=== PATIENT | female | born 2000 | race Caucasian/White ===

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

== ENCOUNTER 2019-06-09 19:40 | Emergency (ER) | payer MEDICAID, OTHER ==
[~2019-06-09] VITALS: Ht 162.6 cm; Wt 52.2 kg
[2019-06-09 19:40] VITALS: BP_SYST 140
--- NOTE | 2019-06-09 19:40 | NUR ---
Patient triaged and placed in waiting room. VSS and patient appears in no acute distress at this time. Accompanied by fam member, awaiting available bed, and MD notified of need for MSE.
--- NOTE | 2019-06-09 21:30 | NUR ---
call pt name in the wr.No answer.
--- NOTE | 2019-06-09 21:35 | NUR ---
call pt name in the wr.No answer.
--- NOTE | 2019-06-09 21:40 | NUR ---
call pt name in the wr.No answer.
== END 2019-06-09 21:40 | disposition left against medical advice (07) ==
LOC: SED 19:40
DX: R06.02 Shortness of breath (principal); M54.2 Cervicalgia; M54.9 Dorsalgia, unspecified; Z53.21 Procedure and treatment not carried out due to patient leaving prior to being seen by health care provider; V89.2XXA Person injured in unspecified motor-vehicle accident, traffic, initial encounter; Y93.89 Activity, other specified; Y92.413 State road as the place of occurrence of the external cause; Y99.8 Other external cause status

== ENCOUNTER 2022-06-14 22:01 | Emergency (ER) | payer MEDICAID, OTHER ==
[~2022-06-14] VITALS: Ht 162.6 cm; Wt 56.7 kg
[2022-06-14 22:10] VITALS: BP_SYST 125
[2022-06-14] MEDS: KETOROLAC TROMETHAMINE 30 MG VIAL IM ONE (22:44)
[2022-06-14] MEDS ORDERED: NAPR-1172 PO (22:54)
[2022-06-14 23:11] VITALS: BP_SYST 116
== END 2022-06-14 23:12 | disposition home or self-care (01) ==
LOC: SED 22:01
DX: S83.91XA Sprain of unspecified site of right knee, initial encounter (principal); Z79.899 Other long term (current) drug therapy; X58.XXXA Exposure to other specified factors, initial encounter; Y93.89 Activity, other specified; Y92.89 Other specified places as the place of occurrence of the external cause; Y99.8 Other external cause status
CPT/HCPCS: 73564; 99283; J1885

== ENCOUNTER 2022-09-15 19:52 | Emergency (ER) | payer MEDICAID ==
[~2022-09-15] VITALS: Ht 162.6 cm; Wt 56.7 kg
[~2022-09-15 19:52] MED LIST: NAPR-1172 PO
[2022-09-15 20:37] VITALS: BP_SYST 124
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
--- NOTE | 2022-09-15 21:40 | NUR ---
CALL PT NAME IN THE WR.NO ANSWER
--- NOTE | 2022-09-15 21:45 | NUR ---
CALL PT NAME IN THE WR.NO ANSWER
--- NOTE | 2022-09-15 21:50 | NUR ---
CALL PT NAME IN THE WR.NO ANSWER
== END 2022-09-15 21:50 | disposition left against medical advice (07) ==
LOC: SED 19:52
DX: R10.9 Unspecified abdominal pain (principal); R11.10 Vomiting, unspecified; R42 Dizziness and giddiness; Z53.21 Procedure and treatment not carried out due to patient leaving prior to being seen by health care provider
CPT/HCPCS: 99281

== ENCOUNTER 2023-09-10 17:20 | Emergency (ER) | payer MEDICAID ==
[~2023-09-10] VITALS: Ht 162.6 cm; Wt 56.7 kg
[2023-09-10 17:20] VITALS: BP_SYST 125; PULSE 78; RESP 18; TEMP 97.6; O2SAT 99
[2023-09-10 18:09] LABS: BILIRUBIN,URINE NEGATIVE (NEGATIVE); CLARITY/URINE CLOUDY (CLEAR); COLOR,URINE YELLOW (YELLOW); GLUCOSE,URINE NEGATIVE (NEGATIVE); KETONES,URINE TRACE (NEGATIVE); LEUKOCYTE ESTERASE ,URINE 1+ (NEGATIVE); NITRITE, URINE NEGATIVE (NEGATIVE); PROTEIN URINE NEGATIVE (NEGATIVE)
[2023-09-10 18:13] LABS: BLOOD, URINE TRACE (NEGATIVE)
[2023-09-10 18:25] LABS: BACTERIA,URINE MODERATE /HPF (None Seen); MUCUS,URINE None Seen /LPF (None Seen)
[2023-09-10] MEDS: NACL 0.9% 1,000 ML IV ONE (18:38)
[2023-09-10] MEDS: ONDANSETRON HCL 4 MG/2 ML VIAL IVP ONE (18:38)
[2023-09-10 18:49] LABS: ALANINE AMINOTRANSFERASE 16 U/L (12-78); ALBUMIN 4.4 g/dL (3.4-4.8); ANION GAP 11 (5-15); ASPARTATE AMINOTRANSFERASE 15 U/L (10-37); CALCIUM 9.2 mg/dL (8.4-11.0); CARBON DIOXIDE 25 mmol/L (23-29); CHLORIDE 99 mmol/L (98-107); CREATININE 0.72 mg/dL (0.55-1.30); GFR AFRICAN AMERICAN 128 mL/min (>90); GFR NON AFRICAN-AMERICAN 106 mL/min (>90); GLUCOSE 85 mg/dL (74-106); POTASSIUM 3.2 mmol/L (3.5-5.1); SODIUM SERUM 135 mmol/L (136-145); TOTAL PROTEIN, SERUM 8.5 g/dL (6.4-8.3); UREA NITROGEN, BLOOD 7 mg/dL (8-21)
[2023-09-10 18:56] LABS: BASOPHILS # (AUTO) 0.1 K/uL (0.0-0.2); BASOPHILS % (AUTO) 0.7 % (0.0-2.0); EOSINOPHILS % (AUTO) 0.4 % (0.0-4.0); HEMATOCRIT 42.9 % (36-48); HEMOGLOBIN 14.8 g/dL (12.0-16.0); LYMPHOCYTES # (AUTO) 1.9 K/uL (1.0-5.5); LYMPHOCYTES % (AUTO) 20.6 % (20.5-51.5); MEAN CORPUSCULAR HEMOGLOBIN 33 pg (27-31); MEAN CORPUSCULAR HGB CONC 35 % (32-36); MEAN CORPUSCULAR VOLUME 96 fL (79.0-98.0); MONOCYTES # (AUTO) 0.8 K/uL (0.0-1.0); MONOCYTES % (AUTO) 8.8 % (1.7-9.3); NEUTROPHILS # (AUTO) 6.3 K/uL (1.8-7.7); NEUTROPHILS % (AUTO) 69.5 % (40.0-70.0); PLATELET COUNT (AUTO) 219 K/uL (130-430); RED BLOOD CELL COUNT(AUTO) 4.47 MIL/uL (4.2-6.2); RED CELL DISTRIBUTION WIDTH 12.8 % (9.0-15.0); WHITE BLOOD COUNT (AUTO) 9.1 K/uL (4.8-10.8)
[2023-09-10 19:20] LABS: HCG,QUANTITATIVE 41174 mIU/ML (0-6)
[2023-09-10 19:34] LABS: ACETONE, SERUM NEGATIVE (NEGATIVE)
[2023-09-10] MEDS: cefTRIAXone 1 GM IVPB PREMIX 50 ML IV ONE (19:40)
[2023-09-10] MEDS ORDERED: ONDA-8 TL (19:43)
[2023-09-10] MEDS ORDERED: CEPH-548 PO (19:43)
[2023-09-10 20:23] VITALS: BP_SYST 121; PULSE 69; RESP 18; TEMP 98.6; O2SAT 98
== END 2023-09-10 20:10 | disposition home or self-care (01) ==
LOC: SED 17:20
DX: O23.41 Unspecified infection of urinary tract in pregnancy, first trimester (principal); O21.0 Mild hyperemesis gravidarum; N39.0 Urinary tract infection, site not specified; Z3A.01 Less than 8 weeks gestation of pregnancy; Z79.899 Other long term (current) drug therapy; Z79.2 Long term (current) use of antibiotics
CPT/HCPCS: 99285; 96365; 76856; 96361; 96375; 80053; 81001; 82009; 84702; 85025; 86900; 86901; 87086; 36415; 81025; 83605; J0696; J2405; J7030; 81000; 81015

== ENCOUNTER 2023-09-26 21:03 | Emergency (ER) | payer MEDICAID ==
[~2023-09-26] VITALS: Ht 162.6 cm; Wt 57.6 kg
[~2023-09-26 21:03] MED LIST changes: +CEPH-548 PO; +ONDA-8 TL
[2023-09-26 21:12] VITALS: BP_SYST 127; PULSE 77; RESP 17; TEMP 98.5; O2SAT 98
[2023-09-26 21:35] LABS: BILIRUBIN,URINE NEGATIVE (NEGATIVE); BLOOD, URINE NEGATIVE (NEGATIVE); CLARITY/URINE SL CLOUDY (CLEAR); COLOR,URINE YELLOW (YELLOW); GLUCOSE,URINE NEGATIVE (NEGATIVE); KETONES,URINE 2+ (NEGATIVE); LEUKOCYTE ESTERASE ,URINE NEGATIVE (NEGATIVE); NITRITE, URINE NEGATIVE (NEGATIVE); PROTEIN URINE TRACE (NEGATIVE); UROBILINOGEN,URINE 0.2 (0.2-1.0)
[2023-09-26 21:56] LABS: BASOPHILS # (AUTO) 0.1 K/uL (0.0-0.2); BASOPHILS % (AUTO) 0.6 % (0.0-2.0); EOSINOPHILS # (AUTO) 0.1 K/uL (0.0-0.4); EOSINOPHILS % (AUTO) 1.2 % (0.0-4.0); HEMATOCRIT 39.3 % (36-48); HEMOGLOBIN 13.8 g/dL (12.0-16.0); LYMPHOCYTES # (AUTO) 1.8 K/uL (1.0-5.5); LYMPHOCYTES % (AUTO) 15.8 % (20.5-51.5); MEAN CORPUSCULAR HEMOGLOBIN 34 pg (27-31); MEAN CORPUSCULAR HGB CONC 35 % (32-36); MEAN CORPUSCULAR VOLUME 96 fL (79.0-98.0); MONOCYTES # (AUTO) 0.6 K/uL (0.0-1.0); MONOCYTES % (AUTO) 5.3 % (1.7-9.3); NEUTROPHILS # (AUTO) 8.6 K/uL (1.8-7.7); NEUTROPHILS % (AUTO) 77.1 % (40.0-70.0); PLATELET COUNT (AUTO) 199 K/uL (130-430); RED BLOOD CELL COUNT(AUTO) 4.11 MIL/uL (4.2-6.2); RED CELL DISTRIBUTION WIDTH 12.8 % (9.0-15.0); WHITE BLOOD COUNT (AUTO) 11.2 K/uL (4.8-10.8)
[2023-09-26 22:23] LABS: BACTERIA,URINE FEW /HPF (None Seen); MUCUS,URINE 1+ /LPF (None Seen); RBC,URINE 0-3 /HPF (0-3); WBC,URINE 0-3 /HPF (0-3)
[2023-09-26 22:39] LABS: ALBUMIN 4.1 g/dL (3.4-4.8); BILIRUBIN,DIRECT 0.1 mg/dL (0.0-0.3); CALCIUM 9.2 mg/dL (8.4-11.0); CREATININE 0.63 mg/dL (0.55-1.30); POTASSIUM 3.6 mmol/L (3.5-5.1); TOTAL BILIRUBIN 0.6 mg/dL (0.0-1.0)
[2023-09-26] MEDS: NACL 0.9% 1,000 ML IV ONE (22:50)
[2023-09-26] MEDS: ONDANSETRON HCL 4 MG/2 ML VIAL IVP ONE (22:51)
[2023-09-27] MEDS ORDERED: ONDA-8 TL (00:24)
[2023-09-27 00:27] VITALS: BP_SYST 127; PULSE 77; RESP 17; TEMP 98.5; O2SAT 98
== END 2023-09-27 00:27 | disposition home or self-care (01) ==
LOC: SED 21:03
DX: O21.0 Mild hyperemesis gravidarum (principal); Z3A.08 8 weeks gestation of pregnancy; Z79.899 Other long term (current) drug therapy; Z79.2 Long term (current) use of antibiotics
CPT/HCPCS: 99283; 96374; 96361; 80076; 80048; 81001; 84702; 83690; 85025; 36415; J2405; J7030; 81000; 81015